=== PATIENT | female | born 1985 | race Asian ===

== ENCOUNTER → 2018-07-02 | Day surgery (SDC) | payer OTHER | END | disposition home or self-care (01) | LOC: JRADIR 09:56 | PROVIDERS: ATTEND Obstetrics & Gynecology | PROC: BU18YZZ Fluoroscopy of Uterus and Fallopian Tubes using Other Contrast (ICD-10-PCS; principal; 2018-07-02) | DX: N97.9 Female infertility, unspecified (principal) | CPT/HCPCS: 36415; 58340; 74740-TC-FY; 76000-TC-FY; 84702; 84703 ==

== ENCOUNTER 2019-07-08 17:56 | Emergency (ER) | payer OTHER ==
[2019-07-08 18:05] VITALS: BP 114/72; PULSE 122; TEMP 99.2; BMI 24.3
[2019-07-08] MEDS ORDERED: SODIUM CHLORIDE 1,000 ML IV STA (18:07)
--- NOTE | 2019-07-08 18:09 | PDOC ---
Rapid Medical Evaluation Time Seen by Provider: 07/08/19 18:02 Medical Evaluation: Allergies Allergy/AdvReac Type Severity Reaction Status Date / Time clarithromycin [From [facility]] Allergy Verified 09/01/12 22:31 07/08/19 18:08 Pt presents for fever since Monday. pt is currently 15 weeks . States she has associated headache, cough and sore throat. Pt took tylenol this afternoon Exam: mild erythema in the posterior pharynx. Afebrile. Tachycardic Orders: labs, fluids, flu, strep Pt to proceed to the ER for further evaluation Discharge Disposition - Diagnosis Fever - Referrals - Patient Instructions - Post Discharge Activity
[2019-07-08 18:59] LABS: BASO % 0.2 % (0-2.0); EOS % 0.2 % (0-4.5); HEMATOCRIT 35.1 % (32.4-45.2); HEMOGLOBIN 11.6 GM/dL (10.7-15.3); LYMPH % 7.2 % (8-40); MCHC 33.1 g/dl (32.0-36.0); MEAN CELL VOLUME 78.4 fl (80-96); MEAN PLT VOLUME 7.3 fl (7.5-11.1); MONO % 10.3 % (3.8-10.2); NEUT % 82.1 % (42.8-82.8); PLATELET COUNT 288 K/MM3 (134-434); RBC 4.47 M/mm3 (3.60-5.2); RDW 15.8 % (11.6-15.6); WHITE BLOOD COUNT 8.6 K/mm3 (4.0-10.0)
[2019-07-08 19:24] LABS: EPI CELLS 1.5 /HPF (0-5/HPF); HYALINE CASTS 0 /lpf (0-8); PH,URINE 6.5 (5.0-8.0); URINE APPEARANCE CLEAR; URINE BACTERIA 22.4 /hpf (NEGATIVE); URINE BILIRUBIN NEGATIVE (NEGATIVE); URINE COLOR YELLOW; URINE GLUCOSE (UA) NEGATIVE (NEGATIVE); URINE KETONE NEGATIVE (NEGATIVE); URINE LEUK ESTERASE NEGATIVE (NEGATIVE); URINE NITRITE NEGATIVE (NEGATIVE); URINE PROTEIN NEGATIVE (NEGATIVE); URINE RBC 3 /hpf (0-4); URINE UROBILINOGEN 0.2 mg/dL (0.2-1.0); URINE WBC 2 /hpf (0-5)
[2019-07-08 19:38] LABS: ALBUMIN 3.4 g/dl (3.4-5.0); BILIRUBIN,TOTAL 0.3 mg/dL (0.2-1); BLOOD UREA NITROGEN 5.3 mg/dL (7-18); CALCIUM 8.7 mg/dL (8.5-10.1); CREATININE 0.7 mg/dL (0.55-1.3); POTASSIUM 3.8 mmol/L (3.5-5.1); TOT PROT 7.3 g/dl (6.4-8.2)
[2019-07-08] MEDS ORDERED: OSELTAMIVIR PHOSPHATE 75 MG CAPSULE PO ONE (21:01)
[2019-07-08] MEDS ORDERED: METOCLOPRAMIDE HCL INJECTION 10 MG/2 ML VIAL IVPB ONE (21:02)
[2019-07-08] MEDS ORDERED: METOCLOPRAMIDE HCL INJECTION 10 MG/2 ML VIAL ONE (21:12)
[2019-07-08] MEDS ORDERED: OSELTAMIVIR PHOSPHATE 75 MG CAPSULE ONE (21:12)
--- NOTE | 2019-07-08 21:20 | PDOC ---
History of Present Illness - General Chief Complaint: Cold Symptoms Stated Complaint: FEVER Time Seen by Provider: 07/08/19 18:02 History Source: Patient - History of Present Illness Initial Comments: 07/08/19 21:18 33-year-old female complaining of nasal congestion, cough, fever x2 days. Patient is 15 weeks . Patient reports that she has vomiting. Reports decreased p.o. and no vomiting today. Patient denies abdominal pain, vaginal discharge, vaginal pain, urinary symptoms. Patient reports that her urine has been dark. Past History - Past Medical History Allergies/Adverse Reactions: Allergies Allergy/AdvReac Type Severity Reaction Status Date / Time clarithromycin [From Biaxin] Allergy Verified 09/01/12 22:31 Home Medications: Ambulatory Orders Oseltamivir Phosphate [Tamiflu] 75 mg PO BID #10 capsule 07/08/19 - Psycho Social/Smoking Cessation Hx Smoking Status: No Smoking History: Never smoked Number of Cigarettes Smoked Daily: 0 Information on smoking cessation initiated: No Hx Alcohol Use: No Drug/Substance Use Hx: No Review of Systems - Review of Systems Able to Perform ROS?: Yes Is the patient limited [place] proficient: No Constitutional: Yes: Fever HEENTM: Yes: Nose Congestion Respiratory: Yes: Cough Cardiac (ROS): No: Symptoms Reported, See HPI, Chest Pain, Edema, Irregular Heart Rate, Lightheadedness, Palpitations, Syncope, Chest Tightness, Other ABD/GI: Yes: Nausea, Vomiting. No: Symptoms Reported, See HPI, Abdominal Distended, Abd. Pain w/ defecation, Blood Streaked Bowels, Constipated, Diarrhea , Difficulty Swallowing, Poor Appetite, Poor Fluid Intake, Rectal Bleeding, Indigestion, Abdominal cramping, Tarry Stools, Other : No: Symptoms Reported, See HPI, Burning, Dysuria, Discharge, Frequency, Flank Pain, Hematuria, Incontinence, Pain, Urgency, Testicular Mass, Testicular Swelling, Lesions, Testicular Pain, Other *Physical Exam - Vital Signs Last Vital Signs Temp Pulse Resp BP Pulse Ox 99.2 F 122 H 20 114/72 99 07/08/19 18:02 07/08/19 18:02 07/08/19 18:02 07/08/19 18:02 07/08/19 18:02 - Physical Exam General Appearance: Yes: Appropriately Dressed Respiratory/Chest: positive: Normal Breath Sounds, Other (coarse breath sounds) Cardiovascular: positive: Tachycardia Gastrointestinal/Abdominal: positive: Normal Bowel Sounds, Soft, Other (gravid abdomen). negative: Tender Musculoskeletal: positive: Normal Inspection. negative: CVA Tenderness Extremity: positive: Normal Capillary Refill, Normal Inspection, Normal Range of Motion Integumentary: positive: Normal Color, Dry, Warm Neurologic: positive: Fully Oriented, Alert ED Treatment Course - LABORATORY CBC & Chemistry Diagram: 07/08/19 18:29 07/08/19 18:29 - ADDITIONAL ORDERS Additional order review: Laboratory Results 07/08/19 12 18:29 18:29 Sodium 132 L Potassium 3.8 Chloride 100 Carbon Dioxide 24 Anion Gap 8 BUN 5.3 L Creatinine 0.7 Est GFR (CKD-EPI)AfAm 132.87 Est GFR (CKD-EPI)NonAf 114.64 Random Glucose 88 Calcium 8.7 Total Bilirubin 0.3 AST 15 ALT 23 Alkaline Phosphatase 78 Total Protein 7.3 Albumin 3.4 Urine Color Yellow Urine Appearance Clear Urine pH 6.5 Ur Specific [place] 1.007 L Urine Protein Negative Urine Glucose (UA) Negative Urine Ketones Negative Urine Blood 1+ H Urine Nitrite Negative Urine Bilirubin Negative Urine Urobilinogen 0.2 Ur Leukocyte Esterase Negative Urine WBC (Auto) 2 Urine RBC (Auto) 3 Urine Casts (Auto) 0 U Epithel Cells (Auto) 1.5 Urine Bacteria (Auto) 22.4 07/08/19 18:29 RBC 4.47 MCV 78.4 L MCHC 33.1 RDW 15.8 H D MPV 7.3 L Neutrophils % 82.1 Lymphocytes % 7.2 L D Monocytes % 10.3 H D Eosinophils % 0.2 Basophils % 0.2 ED Progress Note - Progress Note Progress Note: Influenza A; P; tamiflu IVF reglan labs Medical Decision Making - Medical Decision Making 07/08/19 23:30 repeat v/s: temp 98.2, HRT 108, resp , 22, patient reports feeling better. patient is tolerating po . US within normal limits . will d/ chome. Discharge - Discharge Information Problems reviewed: Yes Clinical Impression/Diagnosis: Influenza A, Viral syndrome Qualifiers: Weeks of gestation: 15 weeks Qualified Code(s): Z3A.15 - 15 weeks gestation of - Additional Discharge Information Prescriptions: Oseltamivir Phosphate [Tamiflu] 75 mg PO BID #10 capsule - Follow up/Referral Referrals: Shmuel Ledemza MD [Primary Care Provider] - - Patient Discharge Instructions Patient Printed Discharge Instructions: Influenza Additional Instructions: Drink plenty of fluids. Take Tylenol every 4 hours as needed for fever. Take Tamiflu as prescribed. Follow-up with your doctor as soon as possible Return to the ER if you are soaking 2 pads per hour, severe abdominal pain, or worsening symptoms. - Post Discharge Activity Work/Back to School Note: Back to Work
== END 2019-07-08 23:23 | disposition home or self-care (01) ==
LOC: JERFT 17:56 → JER 17:56 → JERFT 23:23
PROC: 3E0337Z Introduction of Electrolytic and Water Balance Substance into Peripheral Vein, Percutaneous Approach (ICD-10-PCS; principal; 2019-07-08)
PROC: 3E033GC Introduction of Other Therapeutic Substance into Peripheral Vein, Percutaneous Approach (ICD-10-PCS; 2019-07-08)
DX: O26.892 Other specified pregnancy related conditions, second trimester (principal); O98.512 Other viral diseases complicating pregnancy, second trimester; J09.X2 Influenza due to identified novel influenza A virus with other respiratory manifestations; B33.8 Other specified viral diseases; Z3A.15 15 weeks gestation of pregnancy
CPT/HCPCS: 36415; 76801-TC; 80053; 81003; 85025; 87070; 87086; 87804; 87880; 99282-25; J7030

== ENCOUNTER 2021-10-07 10:35 | Inpatient (IN) | payer BC ==
[2021-10-07] MEDS ORDERED: CITRIC ACID/SODIUM CITRATE 30 ML UNIT-DOSE CUP PO ONE (10:52)
[2021-10-07 11:43] VITALS: BMI 31.1
[2021-10-07] MEDS: ELECTROLYTE-148 SOLN 1,000 ML IV SCH ×2 (11:57→13:02)
[2021-10-07] MEDS ORDERED: ONDANSETRON 4 MG/2 ML VIAL IVPUSH PRN (13:13)
[2021-10-07] MEDS ORDERED: morphine SULFATE/PF 1 MG/2 ML (2cc Syringe - QUVA) EP ONE (13:13)
[2021-10-07] MEDS ORDERED: morphine SULFATE/PF 1 MG/2 ML (2cc Syringe - QUVA) ONE (13:16)
[2021-10-07] MEDS ORDERED: SODIUM CHLORIDE 0.9% P/F 10 ML VIAL IJ ONE (13:16)
[2021-10-07] MEDS ORDERED: ceFAZolin SODIUM 1 GM VIAL ONE ×2 (13:16→17:23)
[2021-10-07] MEDS ORDERED: PHENYLEPHRINE HCL 10 MG/1 ML SINGLE DOSE VIAL ONE (13:32)
[2021-10-07] MEDS ORDERED: OXYTOCIN 10 UNITS/ML VIAL ONE (13:39)
[2021-10-07] MEDS ORDERED: ONDANSETRON 4 MG/2 ML VIAL ONE (13:45)
[2021-10-07] MEDS ORDERED: ACETAMINOPHEN 325 MG TABLET (FP) PO PRN (14:08)
[2021-10-07] MEDS ORDERED: METHYLERGONOVINE MALEATE 0.2 MG/1 ML AMP IM PRN (14:08)
[2021-10-07] MEDS ORDERED: IBUPROFEN 800 MG/8 ML IJ IVPB PRN (14:09)
[2021-10-07] MEDS ORDERED: DEXTROSE 5%-WATER - 50 ML IVPB ONE (17:22)
[2021-10-07] MEDS: CEFAZOLIN 1 GM in DEXTROSE 5%-WATER - 1 GM/50 ML IVPB IVPB SCH (17:27)
[2021-10-07] MEDS: OXYTOCIN 20 UNITS in 0.9% NS 20 UNIT/1,000 ML INFUS.BAG IV SCH (20:04)
[2021-10-08] MEDS ORDERED: DEXTROSE 5%-WATER - 50 ML IVPB ONE ×2 (01:55→10:03)
[2021-10-08] MEDS ORDERED: ceFAZolin SODIUM 1 GM VIAL ONE ×2 (01:55→10:03)
[2021-10-08] MEDS: CEFAZOLIN 1 GM in DEXTROSE 5%-WATER - 1 GM/50 ML IVPB IVPB SCH ×2 (01:57→10:09)
[2021-10-08] MEDS ORDERED: oxyCODONE HCL 5 MG TABLET PO PRN (02:08)
[2021-10-08] MEDS: OXYTOCIN 20 UNITS in 0.9% NS 20 UNIT/1,000 ML INFUS.BAG IV SCH ×2 (05:14→19:23)
[2021-10-08] MEDS: IBUPROFEN 600 MG TABLET (FP) PO PRN ×3 (06:33→19:49)
[2021-10-08] MEDS: SIMETHICONE 80 MG TAB.CHEW (FP) PO PRN ×3 (06:33→18:00)
[2021-10-08] MEDS ORDERED: DIPHTH,PERTUSS(ACELL),TET 0.5 ML DISP.SYRIN IM ONE (10:00)
[2021-10-08] MEDS: ENOXAPARIN NA (PORCINE) 40 MG/0.4 ML DISP.SYRIN SQ SCH (10:09)
[2021-10-08 10:27] LABS: BASO % 0.3 % (0-2.0); EOS % 0.5 % (0-4.5); HEMATOCRIT 31.2 % (32.4-45.2); HEMOGLOBIN 10.6 GM/dL (10.7-15.3); LYMPH % 8.2 % (8-40); MCH 26.5 pg (25.7-33.7); MEAN CELL VOLUME 78.2 fl (80-96); MEAN PLT VOLUME 7.1 fl (7.5-11.1); MONO % 4.9 % (3.8-10.2); NEUT % 86.1 % (42.8-82.8); PLATELET COUNT 199 10^3/uL (134-434); RBC 3.99 M/mm3 (3.60-5.2); RDW 16.9 % (11.6-15.6); WHITE BLOOD COUNT 13.3 K/mm3 (4.0-10.0)
[2021-10-08] MEDS ORDERED: BISACODYL 10 MG SUPP.RECT RC PRN (14:08)
[2021-10-08] MEDS: oxyCODONE HCL 5 MG TABLET PO PRN (18:00)
[2021-10-09] MEDS: SIMETHICONE 80 MG TAB.CHEW (FP) PO PRN ×3 (07:46→20:50)
[2021-10-09] MEDS: IBUPROFEN 600 MG TABLET (FP) PO PRN ×3 (07:46→20:50)
[2021-10-09] MEDS: ENOXAPARIN NA (PORCINE) 40 MG/0.4 ML DISP.SYRIN SQ SCH (10:13)
[2021-10-09 20:43] VITALS: PULSE 84; TEMP 98.2
[2021-10-10] MEDS: SIMETHICONE 80 MG TAB.CHEW (FP) PO PRN (06:27)
[2021-10-10] MEDS: oxyCODONE HCL 5 MG TABLET PO PRN (06:27)
[2021-10-10 09:02] LABS: BASO % 0.4 % (0-2.0); EOS % 2.5 % (0-4.5); HEMATOCRIT 29.6 % (32.4-45.2); HEMOGLOBIN 10.1 GM/dL (10.7-15.3); LYMPH % 19.9 % (8-40); MCH 26.7 pg (25.7-33.7); MEAN CELL VOLUME 78.5 fl (80-96); MEAN PLT VOLUME 6.9 fl (7.5-11.1); MONO % 8.1 % (3.8-10.2); NEUT % 69.1 % (42.8-82.8); PLATELET COUNT 236 10^3/uL (134-434); RBC 3.77 M/mm3 (3.60-5.2); RDW 16.9 % (11.6-15.6)
[2021-10-10] MEDS: IBUPROFEN 600 MG TABLET (FP) PO PRN ×2 (09:41→14:23)
[2021-10-10] MEDS: ENOXAPARIN NA (PORCINE) 40 MG/0.4 ML DISP.SYRIN SQ SCH (09:41)
[2021-10-10 11:46] VITALS: BP 130/80
== END 2021-10-10 14:30 | disposition home or self-care (01) | DRG 788 ==
LOC: JLDR 10:35 → J3W 16:56
PROVIDERS: ADMIT Obstetrics & Gynecology; ATTEND Obstetrics & Gynecology
PROC: 10D00Z1 Extraction of Products of Conception, Low, Open Approach (ICD-10-PCS; principal; 2021-10-07)
DX: O34.211 Maternal care for low transverse scar from previous cesarean delivery (principal); O69.81X0 Labor and delivery complicated by cord around neck, without compression, not applicable or unspecified; O69.2XX0 Labor and delivery complicated by other cord entanglement, with compression, not applicable or unspecified; O99.02 Anemia complicating childbirth; D64.9 Anemia, unspecified; Z3A.39 39 weeks gestation of pregnancy; Z37.0 Single live birth
CPT/HCPCS: 36415; 85025; 88307-TC